=== PATIENT | male | born 1985 | race Two or more races ===

== ENCOUNTER 2018-01-28 15:32 | Emergency (ER) | payer SELFPAY ==
[2018-01-28 15:39] VITALS: O2SAT 98
[2018-01-28 15:42] VITALS: BP 126/76; PULSE 78; RESP 18; TEMP 98
--- NOTE | 2018-01-28 16:55 | C.PDOC ---
History Of Present Illness 32 year old male presents to the emergency department after being brought in by an ambulance, and has admitted to alcoholism. Time Seen by Provider: 01/28/18 16:10 Chief Complaint (Nursing): Substance Abuse History Per: Patient History/Exam Limitations: no limitations Onset/Duration Of Symptoms: Hrs Past Medical History Reviewed: Historical Data, Nursing Documentation, Vital Signs Vital Signs: Last Vital Signs Temp 98 F 01/28/18 15:38 Pulse 78 01/28/18 15:38 Resp 18 01/28/18 15:38 BP 126/76 01/28/18 15:38 Pulse Ox 98 01/28/18 16:55 - Medical History PMH: No Chronic Diseases Surgical History: No Surg Hx Family History: States: No Known Family Hx - Social History Hx Alcohol Use: Yes Hx Substance Use: Yes - Immunization History Hx Tetanus Toxoid Vaccination: No Hx Influenza Vaccination: No Hx Pneumococcal Vaccination: No Review Of Systems Except As Marked, All Systems Reviewed And Found Negative. Neurological: Positive for: Other (intoxication) Physical Exam - Physical Exam Appears: Combative, Agitated, Other (patient is argumentative and confrontational) Oral Mucosa: Other (alcohol smell is present on patient's breath) ED Course And Treatment O2 Sat by Pulse Oximetry: 98 (RA) Pulse Ox Interpretation: Normal Reevaluation Time: 16:30 Reassessment Condition: Improved (stable gait in ED, argumentative with staff and Security, demands d/c to street) Medical Decision Making Medical Decision Making: Plan: Glucose, POC Disposition Doctor Will See Patient In The: Office Counseled Patient/Family Regarding: Studies Performed, Diagnosis - Disposition Referrals: Alcoholics Anonymous [Outside] [facility] [Outside] [facility] [Outside] [facility] [Outside] Disposition: HOME/ ROUTINE Disposition Time: 16:54 Condition: GOOD Instructions: Alcohol Abuse and Alcoholism (DC) Forms: [employer] ([place]ese) Print Language: SLOVENIAN - Clinical Impression Clinical Impression: Alcohol abuse - Scribe Statement The provider has reviewed the documentation as recorded by the Scribe (Evans Kimball) Provider Attestation: All medical record entries made by the Scribe were at my direction and personally dictated by me. I have reviewed the chart and agree that the record accurately reflects my personal performance of the history, physical exam, medical decision making, and the department course for this patient. I have also personally directed, reviewed, and agree with the discharge instructions and disposition.
== END 2018-01-28 16:38 | disposition home or self-care (01) ==
LOC: C.ER 15:32
DX: F10.10 Alcohol abuse, uncomplicated (principal); Y90.9 Presence of alcohol in blood, level not specified